=== PATIENT | female | born 1980 | race Caucasian/White ===

== ENCOUNTER 2019-03-06 03:15 | Emergency (ER) | payer OTHER ==
[~2019-03-06] VITALS: Ht 167.6 cm; Wt 50.0 kg
[2019-03-06] MEDS ORDERED: AMOX TR/POT CLAV 500 MG/125 MG TABLET PO ONE (04:45)
[2019-03-06] MEDS ORDERED: KETOROLAC TROMETHAMINE 30 MG/ML VIAL IM ONE (04:45)
[2019-03-06] MEDS ORDERED: HYDROCODONE/ACETAMINOPHEN 5-325 MG TABLET PO ONE (04:45)
[2019-03-06] MEDS ORDERED: CIPROFLOXACIN HCL 0.2%/HYDROCORT 1% 10 ML OTIC SUSPENSION AS ONE (04:45)
[2019-03-06 04:52] VITALS: BP 106/64
== END 2019-03-06 05:54 | disposition left against medical advice (07) ==
LOC: EMS 03:19
DX: H66.91 Otitis media, unspecified, right ear (principal); H72.91 Unspecified perforation of tympanic membrane, right ear; F17.210 Nicotine dependence, cigarettes, uncomplicated
CPT/HCPCS: 96372; 99284; J1885